=== PATIENT | male | born 1950 | race Hispanic/Latino ===

== ENCOUNTER 2017-08-02 13:54 | Inpatient (IN) | payer MEDICARE, OTHER ==
[2017-08-02 14:14] VITALS: BMI 25.0
[2017-08-02] MEDS ORDERED: Vancomycin 1gm in NS 250ml 1 GM/250 ML BAG IVPB STA (15:02)
[2017-08-02] MEDS ORDERED: Piperacillin/Tazobact 3.375 gm 100 ML IVPB STA (15:02)
[2017-08-02 15:43] LABS: BASO # 0.04 K/mm3 (0.0-2.0); BASO % 0.2 % (0.0-3.0); EOS # 0.2 (0.0-0.7); EOS % 1.4 % (1.5-5.0); GRAN # 12.39 (1.4-6.5); GRAN % 73.7 % (50.0-68.0); HEMOGLOBIN 14.7 g/dL (14.0-18.0); LYMPH # 2.5 (1.2-3.4); MEAN CELL VOLUME 85.3 fl (80.0-105.0); MEAN CORPUSCULAR HEMOGLOBIN 29.2 pg (25.0-35.0); MEAN CORPUSCULAR HGB CONC 34.2 g/dl (31.0-37.0); MONO # 1.6 (0.1-0.6); MONO % 9.7 % (1.0-6.0); RBC 5.04 10^6/uL (3.5-6.1); RED CELL DISTRIBUTION WIDTH 14.5 % (11.5-14.5); WHITE BLOOD COUNT 16.8 10^3/ul (4.5-11.0)
[2017-08-02 15:51] LABS: ALB/GLOB RATIO 1.2 (1.1-1.8); ALBUMIN 4.4 g/dL (3.0-4.8); ALT/SGPT 31 U/L (7-56); AST/SGOT 27 U/L (17-59); BLOOD UREA NITROGEN 20 mg/dL (7-21); CALCIUM 9.8 mg/dL (8.4-10.5); GFR AFRICAN-AMERICAN > 60; GFR NON-AFRICAN AMERICAN > 60
--- NOTE | 2017-08-02 15:52 | RAD ---
PROCEDURE: Right Ankle Radiographs. HISTORY: Infected ulcers COMPARISON: None FINDINGS: BONES: There is no acute fracture or bone destruction. Bone alignment is normal. There is periarticular bone demineralization. JOINTS: Normal. No osteoarthritis. Ankle mortise maintained. Talar dome intact SOFT TISSUES: There is soft tissue swelling and subcutaneous edema in the posterior ankle above the heel. There are multiple surgical clips overlying the posterior soft tissues of the distal leg. OTHER FINDINGS: None. IMPRESSION: No acute fracture or bone destruction. Soft tissue swelling in the posterior ankle above the level. Findings could represent cellulitis. If there is a persistent clinical concern, an MRI may be performed for definitive evaluation of osteomyelitis.
--- NOTE | 2017-08-02 16:25 | ED PDOC ---
Arrival/HPI - General Chief Complaint: Lower Extremity Problem/Injury Time Seen by Provider: 08/02/17 15:02 Historian: Patient - History of Present Illness Narrative History of Present Illness (Text): 08/02/17 16:22 67-year-old male presents today with a 4 week history of worsening right ankle pain. Patient states since 1989 had chronic right lower leg ulcers. Patient states with a past 4 weeks she's had increasing pain and a bloody discharge from the ulcers. Patient states today he went to a emission specialist and was sent into the emergency room to rule out osteomyelitis. Patient denies fevers or chills. No chest pain or shortness of breath. Patient is complaining of severe pain to the right ankle. Patient denies any recent trauma or injury. No other complaints. Past Medical History - Provider Review Nursing Documentation Reviewed: Yes - Travel History Have you recently traveled outside [place] w/in the past 3 mons?: No - Infectious Disease Hx of Infectious Diseases: None - Cardiac Hx Peripheral Vascular Disease: Yes - Integumentary Other/Comment: chronic leg ulcers - Psychiatric Hx Substance Use: No - Surgical History Other/Comment: vascular surgery - Anesthesia Hx Anesthesia: No Family/Social History - Physician Review Nursing Documentation Reviewed: Yes Family/Social History: Unknown Family HX Smoking Status: Heavy Smoker > 10 Cigarettes Daily Hx Alcohol Use: No Hx Substance Use: No Allergies/Home Meds Allergies/Adverse Reactions: Allergies No Known Allergies Allergy (Verified 08/02/17 14:14) Home Medications: Home Meds Medication Instructions Recorded Confirmed No Known Home Med 08/02/17 08/02/17 Review of Systems - Review of Systems Constitutional: absent: Fatigue, Fevers Respiratory: absent: SOB, Cough Cardiovascular: absent: Chest Pain, Palpitations Gastrointestinal: absent: Abdominal Pain, Nausea, Vomiting Musculoskeletal: Arthralgias. absent: Back Pain, Neck Pain Skin: Skin Lesions Neurological: absent: Headache, Dizziness Physical Exam Vital Signs Reviewed: Yes Vital Signs Temp Pulse Resp BP Pulse Ox 08/02/17 14:19 98.3 F 80 18 132/78 99 Temperature: Afebrile Blood Pressure: Normal Pulse: Regular Respiratory Rate: Normal Appearance: Positive for: Well-Appearing, Non-Toxic, Comfortable Pain Distress: None Mental Status: Positive for: Alert and Oriented X 3 - Systems Exam Head: Present: Atraumatic Mouth: Present: Moist Mucous Membranes Neck: Present: Normal Range of Motion Respiratory/Chest: Present: Clear to Auscultation, Good Air Exchange. No: Respiratory Distress, Accessory Muscle Use Cardiovascular: Present: Regular Rate and Rhythm, Normal S1, S2. No: Murmurs Abdomen: No: Tenderness Lower Extremity: Present: NORMAL PULSES, Normal ROM, Tenderness (right leg; there is a large ulceration with bloody purulent discharge noted to the medial aspect of the right ankle approx. 3x6cm. there is a 2nd ulceration approx a quarter sized noted proximally. + surrounding erythema; + warmth; + tenderness; sensation and distal pulses intact; cap refill <2. ), Swelling, Erythema, Neurovascularly Intact, Capillary Refill < 2 s. No: CALF TENDERNESS, Deformity Neurological: Present: GCS=15, Speech Normal Skin: Present: Warm, Dry Psychiatric: Present: Alert, Oriented x 3 Medical Decision Making ED Course and Treatment: 08/02/17 16:31 67-year-old male chronic leg wounds, infected. CBC White blood cell count 16.8 CMP within normal limits Blood cultures pending Wound culture pending X-ray: No fracture Vancomycin and Zosyn started IV Case was discussed in depth with Dr. Berkowitz; accepts admission to [facility] for infected ulcers, cellulitis r/o osteomyelitis impression; cellulitis, infected ulcers admit to med/surg - Lab Interpretations Lab Results: 08/02/17 15:20 08/02/17 15:20 Lab Results 08/02/17 15:20: WBC 16.8 H, RBC 5.04, Hgb 14.7, Hct 43.0, MCV 85.3, MCH 29.2, MCHC 34.2, RDW 14.5, Plt Count 235, MPV 12.0 H, Gran % 73.7 H, Lymph % (Auto) 15.0 L, [place] % (Auto) 9.7 H, Eos % (Auto) 1.4 L, Baso % (Auto) 0.2, Gran # 12.39 H, Lymph # (Auto) 2.5, [place] # (Auto) 1.6 H, Eos # (Auto) 0.2, Baso # (Auto ) 0.04 08/02/17 15:20: Sodium 144, Potassium 4.0, Chloride 103, Carbon Dioxide 28, Anion Gap 17, BUN 20, Creatinine 0.8, Est GFR ( Amer) > 60, Est GFR (Non- Af Amer) > 60, Random Glucose 103, Calcium 9.8, Total Bilirubin 1.1, AST 27, ALT 31, Alkaline Phosphatase 109, Total Protein 8.1, Albumin 4.4, Globulin 3.7, Albumin/Globulin Ratio 1.2 - RAD Interpretation Radiology Orders: 08/02/17 15:02 ANKLE RIGHT 3 VIEWS ROUTINE [RAD] Stat - Medication Orders Current Medication Orders: Vancomycin HCl (Vancomycin 1gm) 1 gm in 250 mls @ 167 mls/hr IVPB STAT STA PRN Reason: Protocol Stop: 08/02/17 16:31 Discontinued Medications Piperacillin Sod/Tazobactam Sod (Zosyn 3.375 In Ns 100ml) 100 mls @ 200 mls/hr IVPB STAT STA PRN Reason: Protocol Stop: 08/02/17 15:31 Last Admin: 08/02/17 15:36 Dose: 200 mls/hr eMAR Start Stop Document 08/02/17 15:36 HI (Rec: 08/02/17 15:37 HI [id number]) Intravenous Solution Start Date 08/02/17 Start Time 15:37 Ketorolac Tromethamine (Toradol) 30 mg IVP STAT STA Stop: 08/02/17 16:22 Disposition/Present on Arrival - Present on Arrival Any Indicators Present on Arrival: No History of DVT/PE: No History of Uncontrolled Diabetes: No Urinary Catheter: No History of Decub. Ulcer: No History Surgical Site Infection Following: None - Disposition Have Diagnosis and Disposition been Completed?: Yes Diagnosis: Cellulitis, Infected ulcer of skin Disposition: HOSPITALIZED Disposition Time: 16:35 Patient Plan: Admission Condition: FAIR Discharge Instructions (ExitCare): Cellulitis (ED) Referrals: Clarence Berkowitz MD [Primary Care Provider] - Follow up with primary Forms: [employer] (Burmese)
[2017-08-02] MEDS: oxyCODONE 5 mg Immediate Release Tab PO PRN (18:33)
[2017-08-02] MEDS ORDERED: Pneumococcal 23-Valent Vaccine IM ONE (22:24)
[2017-08-03] MEDS: Piperacillin/Tazobact 3.375 gm 100 ML IVPB SCH ×5 (00:35→23:18)
[2017-08-03] MEDS: oxyCODONE 5 mg Immediate Release Tab PO PRN ×2 (00:35→16:17)
[2017-08-03] MEDS: Vancomycin 1gm in NS 250ml 1 GM/250 ML BAG IVPB SCH ×2 (05:40→16:17)
[2017-08-03] MEDS: Pantoprazole 40 mg EC Tab PO SCH (08:45)
[2017-08-03] MEDS: Enoxaparin 40 mg Syringe SC SCH (09:42)
--- NOTE | 2017-08-03 10:17 | HP ---
REASON FOR ADMISSION: Right ankle pain and ulceration. HISTORY OF PRESENT ILLNESS: A 67-year-old male, smoker, with chronic leg ulcerations for years, has been monitored and seen as outpatient. He seems doing well. His ulcers healed better except for the last few months, these ulcers seem not healing. Right ankle ulcers seems big, it is like 6 cm. The patient had severe pains over the last few days. According to him, the patient had dropped in water while he was fishing in [place]. After that, he feels a lot of pain and he came to the emergency room because of discharge coming out of his right leg ulcers. Denied any fever, any nausea, any vomiting. Only worsening discharge from the ulcer and increasing pain. PAST MEDICAL HISTORY: As I mentioned, right leg ulcer, chronic venous insufficiency. No history of coronary artery disease or cardiovascular diseases. ALLERGIES: NO KNOWN ALLERGY. SOCIAL HISTORY: He quit, he has been on methadone and stopped it now, not on any medications. 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 Smoking, he does smoke less than a pack a day for years. FAMILY HISTORY: Noncontributory. MEDICATIONS: He takes no medications. He uses Silvadene cream for his right leg ulcers. Tries to keep his leg elevated. Questionable peripheral vascular disease. REVIEW OF SYSTEMS: He does have right leg ulcers in the past, chronic cough, dyspnea with exertions. Otherwise, no chest pain, no any other complaints. PHYSICAL EXAMINATION: VITAL SIGNS: Temperature 98.3, heart rate 80, blood pressure 132/78, respirations 18, sat 99%. HEAD AND NECK: Normal. No JVD. No thyromegaly. CHEST: Clear. Good air entry. CARDIAC: First sound and second sound normal. ABDOMEN: Soft, nontender. EXTREMITIES: No edema. The right leg is wrapped. Noted before, ulcerations, 3 x 6 cm ulceration with yellowish discharge coming out of it. NEUROLOGIC: Normal. LABORATORY STUDY: X-ray noted, there is no evidence of osteomyelitis. Laboratory studies, sodium 144, potassium 4, chloride 103, bicarb 28, BUN 20, creatinine 0.8. Liver functions test is normal. Calcium 9.8, total bili 1.1, AST 27, ALT 31, alkaline phos 109, total protein 8.1, albumin 4.4, globulin 3.7, albumin-globulin ratio 1.2. White count 16.8, hemoglobin 14.7, hematocrit 43, platelets 235. IMPRESSION AND PLAN: This is a 67-year-old male, came in with right leg ulcer, discharge coming out of it, cellulitis. We will admit the patient with cellulitis of the right lower extremity with ulcerations. We will get back to Dr. Lemons, Infectious Disease consult, and Dr. Crawford, Podiatry consult. We will consider evaluation for MRI. The patient has some metal clips on the x-ray. Maybe we will consider triphasic bone scan. We will discuss further with the merchandising consultant. At this moment, we will continue IV vancomycin and Zosyn. May add doxycycline until Dr. Lemons evaluating the patient to cover for any odor-related organisms. Continue current therapy. We will give the patient gastrointestinal and deep venous thrombosis prophylaxis. We will give him Nicoderm patch, Lovenox, and follow up clinically. Clarence Berkowitz MD
--- NOTE | 2017-08-03 15:25 | US ---
PROCEDURE: Lower extremity CHRIS exam HISTORY: Peripheral vascular disease with pain and ulceration. Smoker PHYSICIAN(S): Sharif Ansari MD. FINDINGS: The resting CHRIS's are normal: right, 1.20and left, 1.33. The brachial systolic pressures are symmetric. The segmental pressures are relatively normal and symmetric bilaterally. The PVR waveforms on the right are normal at all levels, including the metatarsal level. On the left, the PVR waveforms are normal in shape but have a slightly decreased amplitude. With no change in pressures, this likely represents artifact. IMPRESSION: 1. Relatively normal CHRIS and PVR examination at rest.
--- NOTE | 2017-08-03 16:10 | CON ---
DATE: HISTORY OF PRESENT ILLNESS: A 67-year-old male seen at bedside today for consultation, evaluation and management of a chronic 18-year-old ulceration on his right ankle. The patient states he has been treating the ulceration for the past 14 years by himself without any medical intervention. He states he cleans and dresses the wound 3 times daily. However, over the course of the last few weeks, he has noticed excessive drainage and increased pain. He went to seek medical advice from a intensive care unit nurse, Dr. Ferris, who told him to go to the emergency room immediately to rule out osteomyelitis. The patient denies any fever or chills. He denies shortness of breath. He states that his pain in the right ankle has decreased considerably since his admission yesterday and with the administration of IV antibiotics. PAST MEDICAL HISTORY: The patient's medical history is significant for chronic 18-year-old right ankle ulceration. He denies taking any medications. PAST SURGICAL HISTORY: The patient's past surgical history includes vascular surgery. ALLERGIES: THE PATIENT HAS NO KNOWN DRUG ALLERGIES. MEDICATIONS: The patient has no home medications. SOCIAL HISTORY: The patient HAS been smoking for 50 years over 10 cigarettes daily. He denies illicit drug use. Denies alcohol abuse. FAMILY HISTORY: Unremarkable. VITAL SIGNS: Revealed temperature of 99, pulse rate of 71, blood pressure of 117/65, respiratory rate of 20. LABORATORY DATA: Laboratory findings reveal white count of 16.8, hemoglobin of 14.7, hematocrit of 43, platelet count of 235. His ESR is 15. His CRP is 24.1. Microbiology report taken yesterday reveals no growth preliminarily of the right ankle ulceration. X-ray report reveals no radiographic evidence or cortical destruction to suggest osteomyelitis at the ankle. OBJECTIVE: Palpable pedal pulses noted bilaterally. Positive pedal hair growth noted bilaterally. Lower extremity skin presents thin, shiny and discolored. Capillary filling time is within normal limits x10. There is a full-thickness ulceration located at the right ankle with a more proximal ulceration at the lower leg. Ulcer is full thickness and base of the ulcer is primarily fibrotic and necrotic. There is noted to be seropurulent drainage. The wound does not probe to tendon or bone. However, upon gentle manual compression, purulence extruded from the wound. The patient was very reluctant to allow me to touch his foot stating that he has been doing it for 14 years and does not like anyone touching it. ASSESSMENT: Full-thickness chronic 18-year-old ulceration on the right ankle with purulent drainage. PLAN: The patient's wound was examined. New culture was taken from extruded purulence and submitted for sensitivity. The wound was manually and gently squeezed to express serosanguineous purulence. The wound does not probe to tendon or bone. The periphery of the wound remains cellulitic. There is an accompanying more proximal smaller ulceration on the distal aspect of the lower leg. This wound shows no purulence. The patient states he has a metal plate in his neck from previous surgery, so an MRI cannot be taken; however, we will order a bone scan. Discussed with Mr. Palmer on the possible need to perform an incision and drainage procedure on his leg. However, the patient is reluctant to have any surgical intervention. I also suggest possibly performing a simple biopsy on his wound since it has been there for 18 years and has not healed. The patient did have palpable pulses; however, we will consult Dr. Sharif Ansari for evaluation to determine if a vascular etiology is present. Recommend Infectious Disease consult, Dr. Lemons to evaluate cultures and sensitivities. We will continue with IV vanco and Zosyn until culture and sensitivity results are finalized. We will await bone scan results to determine if osteomyelitis is present. We will speak with the patient again tomorrow on possible incision and drainage and/or biopsy. Neri Davsi DPM
[2017-08-04] MEDS: Piperacillin/Tazobact 3.375 gm 100 ML IVPB SCH ×3 (05:47→20:12)
[2017-08-04] MEDS: Vancomycin 1gm in NS 250ml 1 GM/250 ML BAG IVPB SCH ×2 (05:47→17:23)
--- NOTE | 2017-08-04 07:22 | CON ---
DATE: 08/03/2017 LOCATION: The patient is seen earlier this morning in room 573, bed 1. CHIEF COMPLAINT: Chronic leg medial and ankle . HISTORY OF PRESENT ILLNESS: This is a 67-year-old male who is a long-term smoker, who has had chronic venous insufficiency in the past with chronic leg ulcers. He states he had a laser surgery done for his veins in the past and has subsequently developed chronic venous ulcers. He has had bilateral medial ulcers that have been getting worse on and off for years. He denies any fevers, any chills. He is complaining of significant pain. REVIEW OF SYSTEMS: A 12-point review of system was performed. He has no GI symptoms. No nausea or vomiting. No abdominal pain. No diarrhea. No constipation. No bright red blood per rectum. No dysuria or frequency. No headaches or blurry vision. PAST MEDICAL HISTORY: Significant for smoker, chronic leg ulcer and chronic venous insufficiency. PAST SURGICAL HISTORY: Significant for foot surgery, had laser surgery in his leg. ALLERGIES: THE PATIENT HAS NO KNOWN ALLERGIES. MEDICATIONS AT HOME: None. PHYSICAL EXAMINATION GENERAL: The patient is in bed, in no acute distress, very anxious man, is comfortable. VITAL SIGNS: Temperature of 99, blood pressure is 137/82, respiratory rate of 20, heart rate of 82. HEENT: Unremarkable. NECK: Supple. LUNGS: Decreased breath sounds. HEART: Normal S1 and S2. ABDOMEN: Soft. EXTREMITIES: Examination in the bilateral legs reveals geographical medial aspect of both ankles, right leg much worse than the left, and he had some significant pain in the right leg. The pulses are intact. LABORATORY DATA: Reveals the patient to have white count of 16,800, hemoglobin of 14, and platelets of 235. The patient's chemistries reveals C-reactive protein is 24, the sed rate is only 15. Microbiology reveals blood cultures negative, right ankle cultures are no growth. ASSESSMENT AND PLAN: A 67-year-old male who is a long-term smoker, chronic leg ulcers, chronic venous insufficiency, who has bilateral ankle medial ulcerations, right much greater than the left. Must rule out underlying pyoderma gangrenosum and must also rule out atypical findings, as this process has been going on now with bacterial superinfection, leukocytosis and bacterial cellulitis. With a white count of 16,000, we will treat the patient with vanco and Zosyn, and pending pancultures, recommended deep tissue biopsy, and I would send deep tissue biopsy for routine gram-stain and cultures and pathology. Would also sent for evaluation of pyoderma gangrenosum and Acid-Fast Bacilli smears and cultures and fungal smears and cultures, and we will make further recommendations. Upon the initial clinical response for the acute bacterial cellulitis on top of the chronic ulcer, must rule out pyoderma gangrenosum, must rule out atypical fungal and TB smears and cultures in addition to routine pathology for pyoderma gangrenosum. We will follow closely with you. Elgin Lemons MD
[2017-08-04 07:55] LABS: HEMOGLOBIN 13.1 g/dL (14.0-18.0); MEAN CELL VOLUME 83.8 fl (80.0-105.0); MEAN CORPUSCULAR HEMOGLOBIN 28.2 pg (25.0-35.0); MEAN CORPUSCULAR HGB CONC 33.7 g/dl (31.0-37.0); RBC 4.64 10^6/uL (3.5-6.1); RED CELL DISTRIBUTION WIDTH 14.4 % (11.5-14.5); WHITE BLOOD COUNT 11.3 10^3/ul (4.5-11.0)
[2017-08-04 08:02] LABS: BLOOD UREA NITROGEN 16 mg/dL (7-21); CALCIUM 9.1 mg/dL (8.4-10.5); GFR AFRICAN-AMERICAN > 60; GFR NON-AFRICAN AMERICAN > 60
--- NOTE | 2017-08-04 08:26 | CON ---
DATE: 08/03/2017 CHIEF COMPLAINT AND HISTORY OF PRESENT ILLNESS: This is a 67 years old non- compliant male who was admitted with large nonhealing bilateral ankle stasis ulcers. He has had these chronic wounds for years. They have never healed completely. Compliance appears to be an issue. He has normal pedal pulses and does not need further arterial evaluation at this time. Multilayer compression is necessary. It will take months for these to heal adequately. As an outpatient, he can be evaluated for venous insufficiency. He denies any history of DVT. Given the chronicity of his ulceration, edge biopsies may be indicated. He gives no history of connective tissue disorders or severe constitutional symptoms. He is a smoker. Initially, he should have weekly multil[facility]. His venous system can be evaluated as an outpatient. Biopsy is recommended. No arterial workup at this time. Sharif Ansari MD [id number]
[2017-08-04] MEDS: Pantoprazole 40 mg EC Tab PO SCH (09:05)
[2017-08-04] MEDS: oxyCODONE 5 mg Immediate Release Tab PO PRN (09:06)
[2017-08-04] MEDS: Enoxaparin 40 mg Syringe SC SCH (09:07)
--- NOTE | 2017-08-04 13:20 | PN ---
DATE: 08/03/2017 SUBJECTIVE: A 67-year-old male. The patient seems to be doing better, less pain, seen by ID consult and by vascular maritime pilot Dr. Sharif Ansari. The patient is stable, currently on IV vanco and Zosyn. He has no new complaints, pain is less than before, both legs are wrapped and the right leg has more big ulcers than the left. PHYSICAL EXAMINATION: VITAL SIGNS: Temperature 99, heart rate 71, blood pressure 117/65, respirations 20, saturation 96%. HEAD AND NECK: Normal. No JVD, no thyromegaly. CHEST: Clear, good air entry. CARDIAC: First sound and second sound normal. ABDOMEN: Soft, nontender. EXTREMITIES: Both legs are wrapped. There is large right ulceration at the ankle site with discharge. LABORATORY DATA: Including sed rate is 15, white count is 16.8, and comprehensive metabolic panel within normal, C-reactive protein 24.1. IMPRESSION AND PLAN: 1. Right leg venous ulcers associated with cellulitis. Continue IV Zosyn, continue IV vancomycin. We will follow up ID recommendations and zigzag topstitcher. Continue local wound care. 2. Leg pain, we will continue oxycodone 5 every 6 hours p.r.n. 3. Smoker, history of chronic cough, probably chronic obstructive pulmonary disease. Continue Nicoderm 1 patch daily and we will continue gastrointestinal and deep venous thrombosis prophylaxis. The patient getting Lovenox 40 mg subcutaneous daily. The patient seen by Dr. Sharif Ansari. At this time, he will not do any intervention. The patient has history of venous surgery, his veins were taken out, however, maybe he will do a venous Doppler as outpatient for saphenous and femoral incompetency or we will do that as outpatient. Continue current therapy. Clarence Berkowitz MD
--- NOTE | 2017-08-04 15:49 | NM ---
PROCEDURE: Three-phase bone scan HISTORY: chronic right ankle ulcer COMPARISON: 08/02/2017 plain film radiographs right ankle TECHNIQUE: Following administration of 26.3 miCu of Tc MDP multiplanar whole body images were obtained. FINDINGS: Evidence for bony metastatic disease: Increase flow to the right lower extremity particularly the medial aspect of the distal calf and ankle Degenerative uptake: Accumulation of radionuclide in the soft tissues right ankle Physiologic uptake: Retention of radionuclide distal tibia Other findings: None. IMPRESSION: Findings consistent with severe cellulitis without manifestations of acute osteomyelitis.
--- NOTE | 2017-08-04 17:21 | PN ---
DATE: 08/04/2017 SUBJECTIVE: This is a 67-year-old male seen for bilateral leg ulcerations. The patient states his ulcerations are chronic and that he has had these ulcerations for over 15 to 16 years. He states that he has had laser surgery in the past twice and it has not helped his ulcerations and he states in fact after the second laser, he started getting ulcerations on his foot, which he never had previously. PAST MEDICAL HISTORY: Positive for having a spinal surgery, for which he has a titanium marietta in his spine that was done many years ago, he does not remember exactly. Otherwise, his past medical history is unremarkable. SOCIAL HISTORY: He is a heavy smoker and has been for many, many years. He does not use drug or alcohol. MEDICATIONS: Has no home medications. ALLERGIES: HE HAS NO KNOWN DRUG ALLERGIES. PHYSICAL EXAMINATION VITAL SIGNS: Reviewed. His temperature is 98.1, pulse was 68, the blood pressure is 127/73, respirations are 18. LABORATORY DATA: The patient's labs were reviewed. His white blood cell count was 16.8 upon admission, it is now 11.3. H and H is 13.1 and 38.9. His ESR is 15. The granulocytes and lymphocytes are 73.7 and 15 with a shift to the left indicating infection. His C-reactive protein was 24.10. The rest of his comprehensive panel was within normal limit. The patient's microbiology, the Gram stain is showing preliminarily no growth after 24 hours from the right ankle and the blood is showing no growth after 24 hours. The patient's lower extremities were evaluated. He has 2/4 palpable pedal pulses to his feet bilateral. Sensation in his feet are intact and areas around the wounds are hypersensitive. He has a large ulceration on the medial ankle of both lower extremities. There is tissue with fibrous slough with some granulation tissue. There are also multiple small satellite lesions around the entire ankle on both legs. The left foot also has a small ulceration. There is chronic edema to both lower extremities, +1. There is no sinus tract, there is no fluctuance and there is no cellulitis at this time. Does not appear to have an abscess, but the patient states that there was some pus coming from the area when he was admitted. ASSESSMENT: Chronic stasis ulcerations. PLAN OF TREATMENT: I had a long discussion with the patient. I told him that these ulcerations can have a tendency to turn into malignant wound, so he needs to have biopsies from both wounds. The patient also should have the wounds debrided and since they are so painful and he is admitted to the hospital, I can take him down to the OR and do this under anesthesia, so that it will not be painful. At the same time, I will do deep tissue cultures and I will do the biopsy and I will apply Apligraf skin grafts and then, he will need Profore compression dressings bilateral. I also discussed this with the patient. I told him that without using the Profore compression dressings, that these wounds probably will never go on to heal. The patient has agreed to surgery as explained to him and we are booking the surgery for tomorrow. The patient will be seen tomorrow preop. Humera Crawford DPM
[2017-08-05] MEDS: Piperacillin/Tazobact 3.375 gm 100 ML IVPB SCH ×4 (00:03→18:27)
--- NOTE | 2017-08-05 04:01 | PN ---
DATE: 08/04/2017 SUBJECTIVE: The patient is in bed, in no acute distress, nontoxic. The patient was seen earlier this morning. PHYSICAL EXAMINATION: VITAL SIGNS: Temperature is 98, blood pressure is 120/70, respiratory rate is 16. HEENT: Unremarkable. NECK: Supple. LUNGS: Have decreased breath sounds. HEART: Normal S1 and S2. ABDOMEN: Soft, nontender. LABORATORY DATA: Reveals the white count is down to 11,300, hemoglobin of 13. BUN of 16, creatinine of 0.9. Microbiology reveals the patient's blood cultures are negative. Ankle cultures are negative. Review of orders reveal the patient to be on vancomycin and Zosyn and Dr. Crawford's note is reviewed. The patient also had a bone scan consistent with cellulitis with acute osteomyelitis. ASSESSMENT AND PLAN: A 67-year-old male with long-time smoker, chronic leg ulcers, chronic venous stasis and bilateral medial ankle ulcerations, right greater than the left, with cultures negative. Must rule out pyoderma gangrenosum and this is atypical. Should have a deep tissue biopsy with routine Gram stain and pathology and patient was sent for pyoderma gangrenosum in addition to AFB smears and cultures and fungal smears and cultures. Today, patient with most unusual bilateral negative bone scan, process has been going on for sometime now. We will discuss with Dr. Crawford. Elgin Lemons MD
[2017-08-05] MEDS: Vancomycin 1gm in NS 250ml 1 GM/250 ML BAG IVPB SCH ×2 (05:34→18:27)
[2017-08-05] MEDS: oxyCODONE 5 mg Immediate Release Tab PO PRN ×2 (05:36→22:12)
[2017-08-05 06:37] LABS: PH,URINE 6.5 (4.7-8.0); URINE BILIRUBIN NEGATIVE (NEGATIVE); URINE BLOOD NEGATIVE (NEGATIVE); URINE GLUCOSE (UA) NEGATIVE (NEGATIVE); URINE LEUKOCYTE ESTERASE NEGATIVE Leu/uL (NEGATIVE); URINE PROTEIN NEGATIVE mg/dL (<30 mg/dL); URINE UROBILINOGEN 0.2 E.U./dL (<1 E.U./dL)
[2017-08-05 06:47] LABS: URINE APPEARANCE CLEAR (CLEAR); URINE COLOR YELLOW (YELLOW)
--- NOTE | 2017-08-05 08:51 | RAD ---
HISTORY: or COMPARISON: No prior. TECHNIQUE: Chest PA and lateral FINDINGS: LUNGS: No active pulmonary disease. PLEURA: No significant pleural effusion identified. No pneumothorax apparent. CARDIOVASCULAR: Normal. OSSEOUS STRUCTURES: No significant abnormalities. VISUALIZED UPPER ABDOMEN: Normal. OTHER FINDINGS: None. IMPRESSION: No acute cardiopulmonary disease appreciated.
--- NOTE | 2017-08-05 09:34 | CP.PCM.PN ---
Subjective - Date & Time of Evaluation Date of Evaluation: 08/05/17 Time of Evaluation: 09:24 - Subjective Subjective: Podiatry Progress note: Dr. Davis/Dr. Crawford 67 year old male was seen and evaluated this morning with attending Dr. Crawford for right ankle wound. Patient reports that he is feeling better today. Reports that he is aware of going to the OR today. Denies of having any acute overnight events. Denies of having any F/N/V/C/SOB/CP/headache. Denies of any other pedal complains at this time. Objective - Vital Signs/Intake and Output Vital Signs (last 24 hours): Temp Pulse Resp BP Pulse Ox 97.7 F 71 20 104/60 99 08/05/17 06:00 08/05/17 06:00 08/05/17 06:00 08/05/17 06:00 08/05/17 06:00 Intake and Output: 08/05/17 08/05/17 06:59 18:59 Intake Total 640 Output Total 600 Balance 40 - Medications Medications: Current Medications Enoxaparin Sodium (Lovenox) 40 mg SC DAILY DEBBY PRN Reason: Protocol Last Admin: 08/04/17 09:07 Dose: 40 mg Vancomycin HCl (Vancomycin 1gm) 1 gm in 250 mls @ 167 mls/hr IVPB Q12H DEBBY PRN Reason: Protocol Last Admin: 08/05/17 05:34 Dose: 167 mls/hr Piperacillin Sod/Tazobactam Sod (Zosyn 3.375 In Ns 100ml) 100 mls @ 200 mls/hr IVPB Q6 DEBBY PRN Reason: Protocol Stop: 08/09/17 00:01 Last Admin: 08/05/17 05:35 Dose: 200 mls/hr Nicotine (Nicoderm Cq) 1 patch TD DAILY DEBBY Last Admin: 08/04/17 10:57 Dose: Not Given Oxycodone HCl (Oxycodone Immediate Release Tab) 5 mg PO Q6H PRN PRN Reason: Pain, moderate (4-7) Last Admin: 08/05/17 05:36 Dose: 5 mg Pantoprazole Sodium (Protonix Ec Tab) 40 mg PO ACB DEBBY Last Admin: 08/04/17 09:05 Dose: 40 mg - Labs Labs: 08/04/17 07:00 08/04/17 07:00 - Constitutional Appears: Well, Non-toxic, No Acute Distress - Extremities Exam Additional comments: Dressing on the right LE is clean, dry and intact with no strikethrough noted - Neurological Exam Neurological Exam: Alert, Awake, Oriented x3 - Psychiatric Exam Psychiatric exam: Normal Affect, Normal Mood Assessment and Plan - Assessment and Plan (Free Text) Assessment: 67 year old male with chronic right medial ankle ulcer Plan: Patient seen and evaluated at bedside with attending Dr. Crawford Labs, vitals and charts reviewed - afebrile, WBC @ 11.3 Dressing is clean, dry and intact with no strike through Patient to go to OR today for wound debridement with application of graft and biopsy of the wound - Patient signed the surgical consent after proper explanation of the procedure - Hold Lovenox today - NPO after breakfast today Right ankle X-rays: No acute changes, no signs of acute OM, increase in soft tissue density on medial ankle consistent with cellulitic changes Bone scan: No acute signs of OM Wound cx: prelim - no growth Podiatry to monitor patient while in-house
[2017-08-05 10:05] LABS: INR 1.06 (0.93-1.08); PARTIAL THROMBOPLASTIN TIME 29.1 Seconds (25.1-36.5)
[2017-08-05] MEDS: Pantoprazole 40 mg EC Tab PO SCH (10:45)
--- NOTE | 2017-08-05 15:24 | PN ---
DATE: 08/04/2017 SUBJECTIVE: A 67-year-old male. The patient feels better, going for graft in the morning and some debridement by Dr. Crawford. The patient has no new complaint. PHYSICAL EXAMINATION: VITAL SIGNS: Temperature 98.1, heart rate 60, blood pressure 127/73, respirations 18, saturation 97% on room air. HEAD AND NECK: Normal. No JVD, no thyromegaly. CHEST: Clear, good air entry. CARDIAC: First sound and second sound normal. ABDOMEN: Soft, nontender. EXTREMITIES: Both foot above the ankle wrapped with gauze. Right foot has a large ulcer over the medial side of the right ankle and foot. LABORATORY DATA: His laboratory shows white count 11.3, hemoglobin 15.1, hematocrit 39.9, platelets 231. Chemistry: Sodium 141, potassium 3.8, chloride 107, bicarbonate 24, BUN 16, creatinine 0.9. The patient's C-reactive protein is 24. The patient also had an HIV test, first generation, was negative, non-reactive. IMPRESSION AND PLAN: 1. Right foot large ulceration with cellulitis, continue IV antibiotic as per Dr. Lemons. The patient is getting Zosyn and vancomycin. Also, seen by Dr. Crawford. is going to go for debridement and grafting. We will follow up with . 2. Chronic obstructive pulmonary disease, stable. No new complaint. 3. Nicotine addiction. Continue NicoDerm patch. PLAN: Continue current therapy. Continue GI and DVT prophylaxis. Clarence Berkowitz MD
[2017-08-05] MEDS: Albuterol-Ipratrop 3 mg / 0.5 (3 ml) UD IH SCH ×2 (16:15→20:16)
[2017-08-05] MEDS: Enoxaparin 40 mg Syringe SC SCH (18:04)
--- NOTE | 2017-08-05 20:12 | PN ---
DATE: SUBJECTIVE: The patient is in bed, in no acute distress, nontoxic. No fevers and no chills. The patient was seen early this morning in 573, bed 1. OBJECTIVE: VITAL SIGNS: Temperature is 98, blood pressure is 120/70, respiratory rate of 16. HEENT: Unremarkable. NECK: Supple. LUNGS: Have decreased breath sounds. HEART: Normal S1, S2. ABDOMEN: Soft. LABORATORY EXAMINATION: Reveals the patient's white count 11,300, hemoglobin of 13, platelets of 231. Chemistries reveals a BUN of 16, creatinine of 0.9. C-reactive protein is 24 and serology is nonreactive. Microbiology reveals the blood cultures are negative and chest x-ray is noted to have no active disease. Bone scan is negative. ASSESSMENT AND PLAN: This is a 67-year-old male, a long time smoker, chronic leg ulcers, chronic venous stasis, who presents with bilateral medial ankle ulceration, right greater than the left, which has been going on for years on and off. It is not an arterial issue. His pulses are present. Concerned about pyoderma gangrenosum and atypical findings such as AFB and fungal. Have requested for biopsy. Did tissue biopsy for AFB smears, AFB cultures, fungal smears and cultures in addition to pathology for pyoderma gangrenosum and Gram stain and routine cultures and pathology with a negative bone scan and superficial cultures are no growth. The patient does have obviously significant finding on exam with purulent material oozing out, on vancomycin and Zosyn day #2 for soft tissue infection. However, the underlying etiology of this is not currently clear yet. Elgin Lemons MD
[2017-08-06] MEDS: Piperacillin/Tazobact 3.375 gm 100 ML IVPB SCH ×3 (00:03→14:17)
[2017-08-06] MEDS: Albuterol-Ipratrop 3 mg / 0.5 (3 ml) UD IH SCH ×3 (02:09→13:15)
[2017-08-06] MEDS: Vancomycin 1gm in NS 250ml 1 GM/250 ML BAG IVPB SCH ×2 (05:25→16:45)
[2017-08-06 07:43] LABS: HEMOGLOBIN 14.7 g/dL (14.0-18.0); MEAN CELL VOLUME 83.9 fl (80.0-105.0); MEAN CORPUSCULAR HEMOGLOBIN 28.6 pg (25.0-35.0); MEAN CORPUSCULAR HGB CONC 34.1 g/dl (31.0-37.0); RBC 5.14 10^6/uL (3.5-6.1); RED CELL DISTRIBUTION WIDTH 14.4 % (11.5-14.5); WHITE BLOOD COUNT 14.9 10^3/ul (4.5-11.0)
--- NOTE | 2017-08-06 09:48 | CON ---
DATE: PULMONARY CONSULTATION REFERRING PHYSICIAN: Dr. Berkowitz. REASON FOR CONSULTATION: Chronic obstructive lung disease, bilateral ankle nonhealing ulcers. HISTORY OF PRESENT ILLNESS: This is a 67-year-old gentleman with known history of chronic obstructive lung disease, has a chronic nonhealing bilateral ankle ulcer, seen by Infectious Disease, also seen by department of sociology chair, has some cough, shortness of breath. No nausea, no vomiting. No diarrhea. PAST MEDICAL HISTORY: Chronic obstructive lung disease, nonhealing ankle ulcers. No history of cardiac disease, no diabetes. ALLERGIES: None known. SOCIAL HISTORY: Active smoker. Denies any alcohol use. Also has a history of methadone use and Suboxone use. FAMILY HISTORY: No significant cardiopulmonary disease reported. MEDICATIONS: He is on DuoNeb every 6 hours, Lovenox 40 mg daily, Nicoderm patch daily, oxycodone Immediate release 5 mg every 6 hours p.r.n., Protonix 40 mg daily, vancomycin 1 g IV every 12 hours, Zosyn 3.375 every 6 hours. REVIEW OF SYSTEMS: No headache, no rhinitis. Has cough, shortness of breath. No chest pain. No nausea, no vomiting, no diarrhea. Bilateral ankle ulcers. Neurologically, awake and alert, follows simple commands. LABORATORY DATA: Shows hemoglobin 13.1, hematocrit 38.9, WBC 11.3, platelet count is 231. INR 1.06. PTT 29. Sodium 141, potassium 3.8, chloride 107, bicarbonate is 24, BUN 16, creatinine 0.9, procalcitonin 24. HIV 1 and 2 nonreactive. Microbiology, blood culture so far there is no growth. Chest x-ray, there is no infiltrate. IMPRESSION AND PLAN: Chronic obstructive lung disease, right foot nonhealing ulcers. Pulmonary point of view, continue inhaled bronchodilator, antibiotics as per Infectious Disease. Gastric prophylaxis, deep venous thrombosis prophylaxis. Patient is asked to stop smoking. Thank you and we will follow with you. Sandra Karimi MD
[2017-08-06] MEDS ORDERED: Midazolam 2 MG/2 ML VIAL ONE (09:53)
[2017-08-06] MEDS ORDERED: Propofol 10 mg/ml Inj (20 ML) ONE (09:53)
[2017-08-06] MEDS ORDERED: Bupivacaine 0.5% Inj(30mL) ONE (09:55)
[2017-08-06] MEDS ORDERED: Lidocaine 1% Inj (20ml) ONE (09:55)
[2017-08-06] MEDS: Pantoprazole 40 mg EC Tab PO SCH (10:00)
--- NOTE | 2017-08-06 10:42 | PN ---
DATE: 08/05/2017 SUBJECTIVE: The patient is waiting for surgery today. He is going to get a graft for his right foot large ulcers after debridement. The patient states that clinically no chest pain, not short of breath, no history of cardiac disease. Currently on IV vancomycin and Zosyn. PHYSICAL EXAMINATION: VITAL SIGNS: Temperature 97.7, heart rate 71, blood pressure 127/57, respirations 18, saturations 99% on room air. HEAD AND NECK: Normal. No JVD. No thyromegaly. CHEST: Clear. Good air entry. CARDIAC: First sound and second sound normal. ABDOMEN: Soft, nontender. EXTREMITIES: Both legs are wrapped with gauze, but he does have right large ulceration of the right foot and ankle. LABORATORY STUDIES: White count 11.3, hemoglobin 16.1, hematocrit , platelets 231. Chemistry: Sodium 141, potassium 3.8, chloride 107, bicarb 24, BUN 16, creatinine 0.9 and calcium 9.1. The patient has C-reaction protein 24.1. Microbiology has Staph intermedius on the wound cultures. Blood cultures were negative. IMPRESSION: 1. Right leg ulcers, probably venous stasis related, poor healing has been there with discharge. We continued IV vancomycin and Zosyn. The patient after debridement and clean up the wounds will be getting dressed by Dr. Crawford. We will continue monitor the wound and wound care on daily basis and even at home as outpatient by visiting nurse. 2. Chronic obstructive pulmonary disease, stable. The patient continue DuoNeb. Continue NicoDerm patch. He seems stable. PLAN: Continue current therapy. Continue GI and DVT prophylaxis. We will follow up clinically. Clarence Berkowitz MD
[2017-08-06] MEDS ORDERED: HYDROmorphone 0.5 mg/0.5 ml ISec ONE ×3 (11:13→11:48)
[2017-08-06] MEDS: HYDROmorphone 0.5 mg/0.5 ml ISec IVP PRN ×3 (11:15→11:45)
[2017-08-06] MEDS ORDERED: Lactated Ringer's 1,000 ML IV SCH (11:15)
--- NOTE | 2017-08-06 11:15 | PCM.SURG1 ---
Surgeon's Initial Post Op Note - Surgeon's Notes Surgeon: Dr. Crawford DPM Propagation Worker: Dr. Robert Salas DPM PGY-1 Type of Anesthesia: IV Sedation, Local Anesthesia Administered By: Dr. Isaiah HOWARD Pre-Operative Diagnosis: Bilateral medial ankle chronic wounds Operative Findings: See dictation. M: Apligraft x 2. I: 18 cc of 1:1 1% lidocaine plain:0.5% Marcaine plain - pre-op Post-Operative Diagnosis: Same Operation Performed: Bilateral debridement of the wounds with removal of non- viable soft tissue with application of biological graft and tissue biopsy Specimen/Specimens Removed: Bilateral ankle tissue biopsy. Deep tissue culture , AFB Estimated Blood Loss: EBL {In ML}: 10 Blood Products Given: N/A Drains Used: No Drains Post-Op Condition: Good Date of Surgery/Procedure: 08/06/17 Time of Surgery/Procedure: 11:16
[2017-08-06] MEDS ORDERED: Oxycodone/Acetaminophen 5/325 mg Tab PO PRN ×2 (11:17)
[2017-08-06] MEDS ORDERED: Oxycodone/Acetaminophen 5/325 mg Tab ONE (12:15)
--- NOTE | 2017-08-06 13:48 | CARD ---
APPROVED REPORT EKG Measurement Heart [id number] <Conclusion> Sinus rhythm with APCs Otherwise normal ECG
[2017-08-06 15:36] VITALS: BP 142/84; PULSE 70; RESP 19; TEMP 98; O2SAT 95
--- NOTE | 2017-08-06 17:45 | CP.PCM.PN ---
Subjective - Date & Time of Evaluation Date of Evaluation: 08/06/17 Time of Evaluation: 17:42 - Subjective Subjective: PGY-[address] Berkowitz/Dr Karimi/Dr Lemons CC: AMA S: Pt at RN stations requesting AMA. Mr Palmer, 67 M, long-term smoker, with chronic venous insufficiency s/p laser had chronic b/l medial ankle ulcers, pending rule out pyoderma gangrenosum, with superinfection/bacterial cellulitis. Pt had I&D, culture were sent, pending sensitivity of staph and strep, atypical fungal and TB smear. O: VS stable Gen: NAD AAOx3 Gait: able to ambulate with a cane with stability A/P: AMA S/P I&D leg wounds, pending culture sensitivity - Augmentin 875 PO BID x 7 days and Doxycyclin 100 PO BID x 7 days per ID doctor. Electronic transfer to [facility], - Pt has decided to leave AMA for personal reason. He does not want further exam , test, treatment, and does not want to wait for result. - Pt states that he will call PMD Dr. Berkowitz on Wednesday to followup test results. Pt understand that if he feels worse, go to emergency room. - pt was told of risk of AMA, namely worsening of cellulitis, development of osteomyselitis, sepsis, disability/walking dysfunction, worseing cardiopulm status. - pt understand what he was told and still wants AMA - After signing AMA form, Pt could not wait for wheel chair and left by elevator Objective - Vital Signs/Intake and Output Vital Signs (last 24 hours): Temp Pulse Resp BP Pulse Ox 98 F 70 19 142/84 95 08/06/17 14:00 08/06/17 14:00 08/06/17 14:00 08/06/17 14:00 08/06/17 14:00 Intake and Output: 08/06/17 08/06/17 06:59 18:59 Intake Total 300 Output Total 500 Balance -200 - Medications Medications: Current Medications Acetaminophen (Tylenol 325mg Tab) 650 mg PO Q6H PRN PRN Reason: Pain, Mild (1-3) Albuterol/Ipratropium (Duoneb 3 Mg/0.5 Mg (3 Ml) Ud) 3 ml IH [id number] DEBBY Last Admin: 08/06/17 13:15 Dose: 3 ml Enoxaparin Sodium (Lovenox) 40 mg SC DAILY DEBBY PRN Reason: Protocol Last Admin: 08/05/17 18:04 Dose: Not Given Vancomycin HCl (Vancomycin 1gm) 1 gm in 250 mls @ 167 mls/hr IVPB Q12H DEBBY PRN Reason: Protocol Last Admin: 08/06/17 05:25 Dose: 167 mls/hr Piperacillin Sod/Tazobactam Sod (Zosyn 3.375 In Ns 100ml) 100 mls @ 200 mls/hr IVPB Q6 DEBBY PRN Reason: Protocol Stop: 08/09/17 00:01 Last Admin: 08/06/17 14:17 Dose: 200 mls/hr Nicotine (Nicoderm Cq) 1 patch TD DAILY [facility] Last Admin: 08/05/17 10:45 Dose: Not Given Oxycodone/Acetaminophen (Percocet 5/325 Mg Tab) 1 tab PO Q4H PRN PRN Reason: Pain, moderate (4-7) Stop: 08/09/17 11:18 Last Admin: 08/06/17 12:15 Dose: 1 tab Oxycodone/Acetaminophen (Percocet 5/325 Mg Tab) 2 tab PO Q4H PRN PRN Reason: Pain, severe (8-10) Stop: 08/09/17 11:18 Last Admin: 08/06/17 15:34 Dose: 2 tab Pantoprazole Sodium (Protonix Ec Tab) 40 mg PO ACB [facility] Last Admin: 08/05/17 10:45 Dose: Not Given - Labs Labs: 08/06/17 07:20 08/04/17 07:00 PT 12.0 SECONDS (9.4-12.5) 08/05/17 09:40 INR 1.06 (0.93-1.08) 08/05/17 09:40 APTT 29.1 Seconds (25.1-36.5) 08/05/17 09:40
--- NOTE | 2017-08-07 05:36 | DS ---
REASON FOR ADMISSION: Nonhealing ankle ulcer. DISCHARGE DIAGNOSES: Nonhealing ankle ulcer with probably infection and chronic obstructive pulmonary disease. HISTORY OF PRESENT ILLNESS: This is a 67-year-old gentleman with past medical history significant for chronic obstructive lung disease and ankle nonhealing ulcer, admitted for further workup. Seen by Infectious Diseases and also seen by Podiatry, biopsy was done, also started on antibiotics. Culture was taken. Has some cough and sputum production, started on bronchodilator. No nausea. No vomiting. No diarrhea. PAST MEDICAL HISTORY: As per history of present illness. ALLERGIES: NONE KNOWN. SOCIAL HISTORY: Active smoker. Denies any alcohol use. FAMILY HISTORY: No significant cardiopulmonary disease reported. MEDICATIONS: He is on Dilaudid 0.5 mg p.r.n. basis, DuoNeb every 6 hours, fentanyl was given, lidocaine patch, Lovenox 40 mg daily, also on Nicoderm patch, oxycodone immediate release 5 mg every 6 hours, Percocet p.r.n. basis, Tylenol p.r.n. basis and received vancomycin and Zosyn. REVIEW OF SYSTEMS: No headache. No rhinitis. Has cough, shortness of breath. No chest pain. No nausea. No vomiting. No diarrhea. Has bilateral ankle nonhealing ulcer. PHYSICAL EXAMINATION: GENERAL: Lying in the bed, in no acute distress. VITAL SIGNS: Temp is 98, heart rate is 70, respiratory rate is 18, blood pressure 142/84, pulse ox 95% on 3 L nasal cannula. HEENT: Moist mucous membrane. Crowded airway. NECK: Supple. No JVD. LUNGS: Have poor airflow with few wheezing. HEART: S1 and S2. ABDOMEN: Soft and nontender. No organomegaly. EXTREMITIES: Bilateral ankle nonhealing ulcer, has dressing. NEUROLOGIC: Awake, alert. Follows simple command. LABORATORY DATA: Shows hemoglobin 14.7, hematocrit 43.1, WBC 14.9, platelet is 286. Sodium 141. Microbiology: Ankle culture has staph aureus and staph intermedius. IMPRESSION AND PLAN: Chronic obstructive lung disease, right ankle nonhealing ulcers. Patient was given his antibiotics, Solu-Medrol, inhaled bronchodilator. Seen by farm machinery assembler. Biopsy was done and also a bone scan, was negative for osteomyelitis. Seen by Infectious Diseases. Broad spectrum antibiotics were started. The patient insisted to go home and apparently signed against medical advice and left. Patient was given prescription of doxycycline augment by the on-call resident. Patient was advised to follow up with Dr. Lemons as well as with Dr. Berkowitz. Thank you. Sandra Karimi MD
--- NOTE | 2017-08-10 13:34 | OP ---
PROCEDURE DATE: 08/06/2017 SURGEON: Humera Crawford DPM. FINISHING RANGE FEEDER: Robert Salas DPM. ANESTHESIOLOGIST: Dr. Colon. PREOPERATIVE DIAGNOSIS: Bilateral medial ankle chronic wounds. POSTOPERATIVE DIAGNOSIS: Bilateral medial ankle chronic wounds. NAME OF THE PROCEDURE: Bilateral debridement of wounds with removal of nonviable soft tissue using Misonix with application of biological graft and tissue biopsy. INDICATION: The patient is a 67-year-old male with the above diagnosis. Patient has exhausted all conservative treatment at this time and now requires surgical intervention. Patient signed the consent after careful explanation of the risks, benefits, complications and alternatives for the surgical procedure. No guarantees were given. N.p.o. status was confirmed prior to taking the patient to the Operating Room. PREPARATION: The patient was brought into the Operating Room and placed on the Operating Room table in supine position. Time-out was performed. For an identification of the correct patient and the procedure after induction of IV sedation, the patient was given total of 18 mL 1:1 mixture of 0.5% Marcaine, 0.1% lidocaine plain in local block-type fashion to the wound on the bilateral medial ankles. Bilateral lower extremities was then prepped and draped in normal sterile manner and the procedure began. No tourniquet was utilized during this procedure. DESCRIPTION OF PROCEDURE: Attention was directed to the medial aspect of the right ankle where the wound was noted. Using Misonix, the wound was surgically debrided down to the healthy bleeding tissue, all the fibrous slough was debrided using Misonix. At this time using the 20 mm punch biopsy needle, a 20 mm biopsy was taken from the wound site. Tissue was sent off the operating field to pathology. Deep tissue cultures along with AFB and fungal cultures were taken. At this time, Apligraf was prepared in particular manner on the back table. Using #15 blade, the graft was fenestrated prior to . After following the proper instructions for the application of the graft, graft was applied to the right medial ankle wound and the graft was held, secured to the wound with Steri-Strips. The surgical site was then dressed with Adaptic, fluff dry, 4x4 and Kerlix. dressing was applied to the right lower extremity at this time. The same procedure was followed once again on the left lower extremity where a chronic wound was noted on the medial aspect of the ankle. POSTOPERATIVE CONDITION: The patient tolerated anesthesia and the procedure well and was escorted to the Recovery Room with vital signs stable and neurovascular status intact to the bilateral lower extremities. The patient is to do full weightbearing and keep his feet elevated with the pillow while in bed. The patient will return to the floor where he will be followed up by Podiatry on daily basis. Upon discharge, the patient will keep the dressing clean, dry and intact until followed by Dr. [facility]. Robert Salas DPM Humera Crawford DPM
--- NOTE | 2017-08-11 13:44 | PQF DEBRID ---
This form is a permanent part of the medical record Dr. Crawford, Per operative report "using Misonix, the wound was surgically debrided down to the healthy bleeding tissue....". Please clarify if this is excisional or non- excisional debridement and the depth. Thank you. Clarification of your documentation is requested to better reflect the severity of illness and intensity of treatment of your patient. Indicators present [x] Documentation of wound care / debridement [] Technique: [] Misnonix [] Instrument used:[] [] Nature of Tissue Removed:[] [] Appearance of Wound:[] [] Size of Wound: [] [] Depth of Debridement: [] [] Other: [] Location in the medical record that reflects the above clinical findings: [] operative report Other Treatment Provided: [] PHYSICIAN'S RESPONSE Based on your medical judgment, can you further clarify the precise NATURE, DEPTH, EXTENT and / or METHODS of wound debridement utilized in this case: [] EXCISIONAL debridement use of a scalpel / blade to cut away tissue Depth (subcutaneous, fascia, muscle, soft tissue and bone) [] Size of Wound [] NON-EXCISIONAL debridement chemical, scrubbing, trimming with a scissor/ versajet [] Other, please indicate: [] [] If unable to determine, please check the box, sign and date. In responding to this query, please exercise your independent professional judgment. The fact that a question is asked does not imply that any particular answer is desired or expected. Thank you for your clarification on this documentation. If you have any questions please call:[ ] * Thank you, [ ]MAYKEL AMBRIZstock analyst KAREEM
== END 2017-08-06 17:50 | disposition left against medical advice (07) | DRG 574 ==
LOC: ED 13:54 → ERH 16:24 → 5RSO 17:45
PROVIDERS: ADMIT Internal Medicine; ATTEND Internal Medicine
PROC: 0HBMXZX Excision of Right Foot Skin, External Approach, Diagnostic (ICD-10-PCS; 2017-08-06)
PROC: 0JDR0ZZ Extraction of Left Foot Subcutaneous Tissue and Fascia, Open Approach (ICD-10-PCS; 2017-08-06)
PROC: 0JDQ0ZZ Extraction of Right Foot Subcutaneous Tissue and Fascia, Open Approach (ICD-10-PCS; 2017-08-06)
PROC: 0HBNXZX Excision of Left Foot Skin, External Approach, Diagnostic (ICD-10-PCS; 2017-08-06)
PROC: 0HRMXK3 Replacement of Right Foot Skin with Nonautologous Tissue Substitute, Full Thickness, External Approach (ICD-10-PCS; principal; 2017-08-06 09:30)
DX: L03.115 Cellulitis of right lower limb (principal); L97.319 Non-pressure chronic ulcer of right ankle with unspecified severity; L97.329 Non-pressure chronic ulcer of left ankle with unspecified severity; I87.2 Venous insufficiency (chronic) (peripheral); J44.9 Chronic obstructive pulmonary disease, unspecified; F17.200 Nicotine dependence, unspecified, uncomplicated